=== PATIENT | male | born 1965 | race African-American/Black ===

== ENCOUNTER 2022-11-11 22:14 | Emergency (ER) | payer SELFPAY ==
[2022-11-11] MEDS ORDERED: Ketorolac Tromethamine 30 MG/ML VIAL ONE (22:58)
[2022-11-11] MEDS ORDERED: Dexamethasone 10 MG/ML VIAL ONE (22:58)
== END 2022-11-11 23:04 | disposition home or self-care (01) ==
LOC: CSHERS 22:14
DX: M17.0 Bilateral primary osteoarthritis of knee (principal); G89.29 Other chronic pain; F17.210 Nicotine dependence, cigarettes, uncomplicated; I10 Essential (primary) hypertension
CPT/HCPCS: 96374; 96375; J1100; J1885

== ENCOUNTER 2023-03-24 22:39 | Emergency (ER) | payer SELFPAY | END 2023-03-25 06:05 | disposition home or self-care (01) | LOC: CSHERS 22:39 | DX: M19.011 Primary osteoarthritis, right shoulder (principal); M17.11 Unilateral primary osteoarthritis, right knee; I10 Essential (primary) hypertension; F17.210 Nicotine dependence, cigarettes, uncomplicated | CPT/HCPCS: 99283 ==

== ENCOUNTER 2023-08-19 14:16 | Emergency (ER) | payer SELFPAY ==
[2023-08-19] MEDS ORDERED: Ketorolac Tromethamine 30 MG (1 mL) VIAL ONE (15:36)
== END 2023-08-19 15:48 | disposition home or self-care (01) ==
LOC: CSHERS 14:16
DX: S22.42XA Multiple fractures of ribs, left side, initial encounter for closed fracture (principal); S63.501A Unspecified sprain of right wrist, initial encounter; F17.210 Nicotine dependence, cigarettes, uncomplicated; I10 Essential (primary) hypertension; X58.XXXA Exposure to other specified factors, initial encounter
CPT/HCPCS: 96372; J1885